=== PATIENT | male | born 1950 | race Caucasian/White ===

== ENCOUNTER 2021-04-23 19:58 | Emergency (ER) | payer MEDICARE, OTHER ==
[~2021-04-23] VITALS: Ht 180.3 cm; Wt 122.5 kg
[2021-04-23] MEDS ORDERED: GELATIN SPONGE,ABSORBABLE 1 SPONGE SPONGE TP ONE (20:09)
[2021-04-23] MEDS ORDERED: LIDOCAINE HCL/MPF 1% 30 ML VIAL IJ ONE (20:10)
--- NOTE | 2021-04-23 20:10 | NUR ---
BIBRA FR OM HOME FR C/O BLEEDING FROM RFA AV SHUNT. PT HAD HD TODAY AT 0700. PT A, OX4. WAS PLACED IN BED 4 ER. ON MONITOR, VSS. WILL CONT TO MONITOR
--- NOTE | 2021-04-23 20:17 | NUR ---
DR ALVAREZ AT BED SIDE FOR SUTURING
[2021-04-23] MEDS ORDERED: LIDOCAINE HCL/PF 1% 30 ML VIAL TP ONE (20:30)
[2021-04-23 20:35] LABS: BASOPHILS # (AUTO) 0.1 K/uL (0.0-0.2); BASOPHILS % (AUTO) 1.4 % (0.0-2.0); EOSINOPHILS % (AUTO) 2.9 % (0.0-6.0); HEMATOCRIT 36 % (39-51); HEMOGLOBIN 12.1 g/dL (13.5-17.5); LYMPHOCYTES # (AUTO) 0.9 K/uL (0.8-4.8); LYMPHOCYTES % (AUTO) 15.6 % (20.0-44.0); MEAN CORPUSCULAR HGB CONC 33 g/dl (31.0-36.0); MEAN CORPUSCULAR VOLUME 93 fL (80-96); MONOCYTES # (AUTO) 0.8 K/uL (0.1-1.30); MONOCYTES % (AUTO) 13.8 % (2.0-12.0); NEUTROPHILS % (AUTO) 66.3 % (43.0-81.0); PLATELET COUNT (AUTO) 97 K/uL (150-450); RED BLOOD CELL COUNT(AUTO) 3.93 MIL/uL (4.5-6.0)
[2021-04-23 20:44] LABS: CALCIUM, SERUM 9.8 mg/dL (8.5-10.1); CARBON DIOXIDE 30 mmol/L (21-32); CHLORIDE 101 mmol/L (98-107); CREATININE 4.6 mg/dL (0.6-1.3); GLUCOSE 171 mg/dL (74-106); POTASSIUM 4.2 mmol/L (3.5-5.1); SODIUM SERUM 139 mmol/L (136-145); UREA NITROGEN, BLOOD 42 mg/dL (7-18)
[2021-04-23 21:37] VITALS: BP 159/98
--- NOTE | 2021-04-23 21:38 | NUR ---
Patient discharged to home in stable condition. Written and verbal after care instructions given. Patient verbalizes understanding of instruction.
[2021-04-23 22:01] LABS: BAND % (MANUAL) 2 % (0.0-5.0); EOSINOPHILS % (MANUAL) 1 % (0-4); LYMPHOCYTES % (MANUAL) 15 % (16-48); MONOCYTES % (MANUAL) 10 % (0-11.0); NEUTROPHILS % (MANUAL) 72 (42-76)
== END 2021-04-23 21:21 | disposition home or self-care (01) ==
LOC: ER 20:03
DX: T82.511A Breakdown (mechanical) of surgically created arteriovenous shunt, initial encounter (principal); I13.2 Hypertensive heart and chronic kidney disease with heart failure and with stage 5 chronic kidney disease, or end stage renal disease; N18.6 End stage renal disease; I50.9 Heart failure, unspecified; Z99.2 Dependence on renal dialysis
CPT/HCPCS: 36415; 80048; 85007; 85025; 99283; A6403; J3490 ×2

== ENCOUNTER 2022-02-22 19:37 | Inpatient (IN) | payer OTHER ==
[~2022-02-22] VITALS: Ht 172.7 cm; Wt 129.3 kg
[~2022-02-22 19:37] MED LIST: PIPERACILLIN /TAZOBACTAM 2.25 G in IV D5W 50 ML IV ONE
--- NOTE | 2022-02-22 19:50 | NUR ---
BIBRA88 FROM HOME C/O LOW BP 80/50 AT SCENE. BP AT TRIAGE 97/73 HX OF DIALYSIS MWF DID FULL TX TODAY. STATES "HIS LEGS ARE FEELING WEAK". PATIENT ALERT AND ORIENTED X3. NORMALLY AMBULATORY BUT BROUGHT IN BY NIKIA TODAY. IN BED 07 AWAITING MD WINTERS.
--- NOTE | 2022-02-22 20:13 | NUR ---
COVID SWAB DONE AND SENT TO LAB
--- NOTE | 2022-02-22 20:13 | NUR ---
BLOOD COLLECTED AND SENT TO LAB
[2022-02-22] MEDS ORDERED: IV NS 0.9% 1,000 ML BAG IV ONE (20:30)
[2022-02-22 20:35] LABS: BASOPHILS # (AUTO) 0.1 K/uL (0.0-0.2); BASOPHILS % (AUTO) 1.3 % (0.0-2.0); HEMATOCRIT 35 % (39-51); HEMOGLOBIN 11.4 g/dL (13.5-17.5); LYMPHOCYTES # (AUTO) 0.7 K/uL (0.8-4.8); LYMPHOCYTES % (AUTO) 9.1 % (20.0-44.0); MEAN CORPUSCULAR HGB CONC 33 g/dl (31.0-36.0); MEAN CORPUSCULAR VOLUME 91 fL (80-96); MONOCYTES # (AUTO) 1.2 K/uL (0.1-1.30); NEUTROPHILS # (AUTO) 5.9 K/uL (1.8-8.9); NEUTROPHILS % (AUTO) 73.6 % (43.0-81.0); PLATELET COUNT (AUTO) 141 K/uL (150-450); RED BLOOD CELL COUNT(AUTO) 3.83 MIL/uL (4.5-6.0)
[2022-02-22 20:54] LABS: CARBON DIOXIDE 31 mmol/L (21-32); CHLORIDE 96 mmol/L (98-107); CREATININE 5.4 mg/dL (0.6-1.3); GLUCOSE 168 mg/dL (74-106); SODIUM SERUM 137 mmol/L (136-145); UREA NITROGEN, BLOOD 40 mg/dL (7-18)
[2022-02-22] MEDS ORDERED: ASPIRIN 81 MG TAB.CHEW PO ONE (21:00)
[2022-02-22] MEDS ORDERED: ASPIRIN 81 MG TAB.CHEW ONE (21:01)
--- NOTE | 2022-02-22 21:02 | NUR ---
[facility] CALL[facility] FOR ADMISSION. SPOKE WITH ALYSON OSORIOT
[2022-02-22 21:05] LABS: ALANINE AMINOTRANSFERASE 11 U/L (12-78); ALBUMIN 3.1 g/dL (3.4-5.0); ALKALINE PHOSPHATASE 137 U/L (46-116); ASPARTATE AMINOTRANSFERASE 17 U/L (15-37); BILIRUBIN,DIRECT 0.3 mg/dL (0.0-0.2); BILIRUBIN,TOTAL 0.6 mg/dL (0.2-1.0); TOTAL PROTEIN, SERUM 7.8 g/dL (6.4-8.2)
--- NOTE | 2022-02-22 21:11 | NUR ---
DR. DRAPER ON THE PHONE WITH THE RAMON
--- NOTE | 2022-02-22 21:13 | NUR ---
PT IS AUTHORIZED TO STAY, APPROVED BY DR. CARRILLO, [facility]
--- NOTE | 2022-02-22 21:29 | NUR ---
DR. BAEZ ON THE PHONE WITH DR. NAVARRO
--- NOTE | 2022-02-22 21:40 | NUR ---
[facility] SWAB COLLECTED AND SENT TO LAB. PATIENT'S BELONGINGS LIST DONE.
[2022-02-22] MEDS ORDERED: CEFTRIAXONE 1GM BAG (ER ONLY) 50 ML IV ONE ×2 (21:55→22:00)
[2022-02-22] MEDS ORDERED: AZITHROMYCIN 500 MG VIAL ONE (21:55)
[2022-02-22] MEDS ORDERED: MAG HYDROX/AL HYDROX/SIMETH 30 ML UDC PO PRN (22:00)
[2022-02-22] MEDS ORDERED: ZOLPIDEM TARTRATE 5 MG TABLET PO PRN (22:00)
[2022-02-22] MEDS ORDERED: PHENYLEPHRINE 50 MG in IV NS 0.9% 245 ML IV PRN (22:00)
[2022-02-22] MEDS ORDERED: Z GUARD REMEDY 4 OZ OINT TP PRN (22:00)
[2022-02-22] MEDS ORDERED: ACETAMINOPHEN 325 MG TABLET PO PRN (22:00)
[2022-02-22] MEDS ORDERED: AZITHROMYCIN 500 MG in IV D5W 250 ML IV ONE (22:00)
[2022-02-22] MEDS ORDERED: ONDANSETRON HCL/PF 4 MG/2 ML VIAL IVP PRN (22:00)
[2022-02-22] MEDS ORDERED: MAGNESIUM HYDROXIDE 30 ML UDC PO PRN (22:00)
--- NOTE | 2022-02-22 22:35 | NUR ---
SECOND IV LINE ESTBALISHED 18G LAC PER ICU PROTOCOLS
[2022-02-22] MEDS ORDERED: *INSULIN REGULAR(HUMULIN R)HUM 100 UNIT/ML VIAL SQ PRN (23:00)
[2022-02-22] MEDS ORDERED: INSULIN REGULAR, HUMAN 100 UNIT/ML 3 ML VIAL SQ PRN (23:00)
[2022-02-22] MEDS ORDERED: PIPERACILLIN /TAZOBACTAM 2.25 G in IV D5W 50 ML IV ONE (23:00)
[2022-02-22] MEDS ORDERED: DEXTROSE 50%-WATER 50 ML DISP.SYRIN IV PRN (23:00)
--- NOTE | 2022-02-22 23:09 | NUR ---
REPORT GIVEN TO FAROOQ
[2022-02-22] MEDS ORDERED: AMIO200T5 PO (23:19)
[2022-02-22] MEDS ORDERED: HYDR-4209 PO (23:19)
[2022-02-22] MEDS ORDERED: TIMO5DRO35 RIGHTEYE (23:19)
[2022-02-22] MEDS ORDERED: FURO40TA5 PO (23:19)
[2022-02-22] MEDS ORDERED: DOCU-141 PO (23:19)
[2022-02-22] MEDS ORDERED: MIDO10TA PO (23:19)
[2022-02-22] MEDS ORDERED: TIMO5DRO35 EACHEYE (23:19)
[2022-02-22] MEDS ORDERED: CHOL200013 (23:19)
[2022-02-22] MEDS ORDERED: CLOP100P MC (23:19)
[2022-02-22] MEDS ORDERED: VANCOMYCIN 1 GM in IV D5W 250ml IV ONE (23:30)
--- NOTE | 2022-02-22 23:40 | NUR ---
RN NOTES RECEIVED CARE OF PATIENT FROM ER NURSE, PATIENT A/O X4, ABLE TO MAKE NEEDS KNOWN. PATIENT IN NO PAIN OR DISCOMFORT AT THIS TIME. ON OXYGEN THERAPY VIA SIMPLE MASK AT 10 L/MIN, BREATHING IS LABORED, SYMMETRICAL CHEST RISE AND FALL NOTED, O2 SAT 97%. PATIENT ON TELE MONITOR, SHOWING CONTROLLED AFIB, HR 98, NO DISTRESS NOTED. ALL PATIENT'S IV ACCESS ARE PATENT AND FLUSHING WELL. SAFETY MEASURES IMPLEMENTED PER HOSPITAL PROTOCOLS. WILL CONTINUE TO MONITOR PATIENT.
--- NOTE | 2022-02-22 23:43 | NUR ---
PT TRANSPORTED TO ROOM 257 ON CRUST SORTER PER ACLS PROTOCOL. V/S STABLE AT TIME OF TRANSFER.
[2022-02-22] MEDS ORDERED: PIPERACILLIN /TAZOBACTAM 2.25 G VIAL IV ONE (23:44)
[2022-02-22 23:46] VITALS: BP 91/55
[2022-02-22] MEDS: IV NS 0.9% 250 ML IV PRN (23:46)
[2022-02-23] VITALS (79 sets, daily range): BP systolic 59–145; BP diastolic 32–103
[2022-02-23] MEDS ORDERED: HYDROCODONE/APAP 5/325MG TABLET PO PRN
[2022-02-23] MEDS ORDERED: MIDODRINE HCL (5MG) 5 MG TABLET PO SCH
[2022-02-23] MEDS ORDERED: PIPERACILLIN /TAZOBACTAM 3.375 G in IV D5W 50 ML IV SCH ×2
[2022-02-23] MEDS ORDERED: VANCOMYCIN 1 GM VIAL ONE (00:32)
--- NOTE | 2022-02-23 01:30 | NUR ---
RN NOTES CRITICAL LAB VALUE REPORTED, TROPONIN LEVELS OF 2640. PATIENT READING CONTROLLED AFIB ON TELE MONITOR. PATIENT IN NO ACUTE DISTRESS, NO PAIN EXPRESSED. DOCTOR PROCESS SUPERVISOR, PAUL EARL, NOTIFIED, ORDER TO START HEPARIN DRIP FOR ACS. WILL CARRY OUT ORDERS ACCORDING TO PROTOCOLS AND WILL CONTINUE TO MONITOR PATIENT.
[2022-02-23] MEDS ORDERED: HEPARIN SODIUM, PORCINE 5000 UNITS/1 ML VIAL IV ONE (02:00)
[2022-02-23] MEDS: HEPARIN INFUSION/D5W 500 ML IV PRN ×2 (02:22→22:49)
[2022-02-23 04:12] LABS: BASOPHILS # (AUTO) 0.1 K/uL (0.0-0.2); BASOPHILS % (AUTO) 0.6 % (0.0-2.0); HEMATOCRIT 34 % (39-51); HEMOGLOBIN 11.2 g/dL (13.5-17.5); LYMPHOCYTES # (AUTO) 0.9 K/uL (0.8-4.8); LYMPHOCYTES % (AUTO) 10.5 % (20.0-44.0); MEAN CORPUSCULAR HGB CONC 33 g/dl (31.0-36.0); MEAN CORPUSCULAR VOLUME 92 fL (80-96); MONOCYTES # (AUTO) 1.5 K/uL (0.1-1.30); NEUTROPHILS # (AUTO) 6.1 K/uL (1.8-8.9); NEUTROPHILS % (AUTO) 69.9 % (43.0-81.0); PLATELET COUNT (AUTO) 131 K/uL (150-450); RED BLOOD CELL COUNT(AUTO) 3.72 MIL/uL (4.5-6.0); WHITE BLOOD COUNT (AUTO) 8.7 K/uL (4.3-11.0)
[2022-02-23 04:36] LABS: CARBON DIOXIDE 31 mmol/L (21-32); CHLORIDE 98 mmol/L (98-107); CREATININE 5.7 mg/dL (0.6-1.3); GLUCOSE 127 mg/dL (74-106); MAGNESIUM 2.3 mg/dL (1.8-2.4); POTASSIUM 5.1 mmol/L (3.5-5.1); SODIUM SERUM 137 mmol/L (136-145); UREA NITROGEN, BLOOD 41 mg/dL (7-18)
[2022-02-23 04:53] LABS: PHOSPHORUS 8.6 mg/dL (2.5-4.9)
--- NOTE | 2022-02-23 05:12 | NUR ---
UNABLE TAKE XRAY KUB DUE TO PATIENTS WEIGHT EXCEEDS IMAGING DETECTOR PLATE FROM TAKING XRAY EVEN WITH GRID. EXAM NEEDS TO BE MODIFIED TO CT ABDOMEN PELVIS PER CHANGE BY ORDERING DOCTOR, END OF REPORT....
[2022-02-23] MEDS: CALCIUM ACETATE 667 MG CAP/TAB PO SCH ×4 (05:18→17:52)
--- NOTE | 2022-02-23 06:40 | NUR ---
RN NOTES WILL ENDORSE CARE OF PATIENT TO AM NURSE WHILE PATIENT SLEEPING, WAKES UP TO NAME. NO DISCOMFORT OR PAIN AT THIS TIME. PATIENT ON OXYGEN THERAPY VIA SIMPLE MASK, TITRATED DOWN TO 5L/MIN, O2 SAT 95%, BREATHING EVEN AND UNLABORED. PATIENT ON TELE MONITOR SHOWING CONTROLLED AFIB WITH HR OF 98, NO DISTRESS NOTED ON PATIENT. ALL PATIENT NEEDS MET THROUGHOUT SHIFT. ALL DUE MEDS GIVEN. SAFETY MEASURES KEPT IN PLACE. WILL ENDORSE TO AM NURSE FOR CONTINUITY OF CARE.
--- NOTE | 2022-02-23 07:36 | NUR ---
WOUND CARE CONSULT: PT PRESENTS WITH STAGE 3 PRESSURE ULCER TO SACRUM, LEFT ELBOW DRY SCAB, DRY LESION TO TOP OF SCALP AND BILATERAL LOWER LEG REDNESS WITH EDEMA AND SOME WEEPING/CRUSTED LESIONS, ALL PRESENT ON ADMISION. DR JOSE FERRER CALLED FOR SURGICAL CONSULT REQUEST AND DR IKSER CALLED FOR DPM CONSULT REQUEST. RECOMMENDATIONS MADE FOR SKIN PROTECTION AND WOUND CARE. DISCUSSED WITH NURSING STAFF. PT DEMONSTRATES ABILITY TO ASSIST WITH TURNING AND REPOSITIONING. MD IN AGREEMENT WITH PLAN OF CARE. Addendum: 02/23/22 at 0738 by ELVIN HERNANDEZ WNDNU Amended: Links added.
[2022-02-23] MEDS ORDERED: ZOSYN IVPB 2.25 G in IV D5W 50ml IV ONE (08:00)
[2022-02-23] MEDS: CLOPIDOGREL BISULFATE 75 MG TABLET PO SCH (08:19)
[2022-02-23] MEDS: ASPIRIN EC 81 MG TABLET.DR PO SCH (08:19)
[2022-02-23] MEDS: DOCUSATE SODIUM 100 MG CAPSULE PO SCH (08:20)
[2022-02-23] MEDS: AMIODARONE HCL 200 MG TABLET PO SCH (08:20)
[2022-02-23] MEDS: BLOOD SUGAR DIAGNOSTIC 1 EACH STRIP VI SCH ×3 (08:33→17:51)
[2022-02-23] MEDS: TIMOLOL 0.5% SOLN OPHTH 5 ML BOTTLE EACHEYE SCH ×2 (08:34→17:09)
[2022-02-23] MEDS: HYDROGEL DRESSING 90 GM TUBE TP PRN (08:55)
[2022-02-23] MEDS: HYDROGEL DRESSING 90 GM TUBE TP SCH (08:58)
--- NOTE | 2022-02-23 09:25 | NUR ---
REPORTED TO DR. HUTCHISON R/T BACK PAIN NOT RELIEVED BY MD SHADY WITH NEW ORDER OF MORPHINE NOTED.
[2022-02-23] MEDS ORDERED: MORPHINE SULFATE INJ 2 MG/ML DISP.SYRIN IV PRN (09:30)
[2022-02-23] MEDS ORDERED: ZOSYN IVPB 2.25 G in IV D5W 50ml IV SCH (13:00)
[2022-02-23] MEDS: ALBUMIN 25% 25 GM in PREMIX 1 EA IV PRN (14:47)
[2022-02-23] MEDS: NOREPINEPHRINE 8 MG in IV NS 0.9% 242 ML IV PRN ×2 (15:46→20:14)
[2022-02-23] MEDS: ZOSYN IVPB 2.25 G in IV D5W 50ml IV SCH ×2 (17:01→23:52)
[2022-02-23] MEDS: AMMONIUM LACTATE 227 GM BOTTLE TP SCH (17:09)
[2022-02-23] MEDS: CLOTRIMAZOLE 1% 15 GM TUBE TP SCH (17:10)
--- NOTE | 2022-02-23 18:50 | NUR ---
CHARGE NURSE RN AT BEDSIDE AND PT. NOTED WITH AGONAL BREATHING AND A SUDDEN RESPIRATORY ARREST. CODE BLUE ACTIVATED. PLEASE SEE CODE EMERGENCY FORM/SHEET FOR DETAILS.
--- NOTE | 2022-02-23 19:10 | NUR ---
ENDORSED TO LEE FOR CONTINUITY OF CARE.
[2022-02-23] MEDS: PROPOFOL 100 ML IV PRN (19:20)
--- NOTE | 2022-02-23 20:30 | NUR ---
ICU/LOSS PREVENTION REPRESENTATIVE PT WAS AGITATED, NOTIFED THE CHARGE NURSE WHO THEN INCREASED THE SEDATION ON THIS PT. WILL CONTINUE TO MONITOR THIS PT.
[2022-02-23] MEDS ORDERED: PROPOFOL 200 MG/20 ML VIAL IV ONE (20:35)
[2022-02-23] MEDS ORDERED: EPINEPHRINE (1:10,000) SYRINGE 1 MG/10 ML DISP.SYRIN IVP ONE (20:35)
[2022-02-23] MEDS ORDERED: ETOMIDATE 2 MG/ML VIAL IV ONE (20:35)
--- NOTE | 2022-02-23 20:50 | NUR ---
ICU/MONUMENTAL STONEMASON LEVO STARTED BY GRILL ATTENDANT NURSE FOR LOW BP 59/39 HEART RATE 93. WILL CONTINUE TO MONITOR THIS PT AND HIS BLOOD PRESSURE.
--- NOTE | 2022-02-23 21:39 | NUR ---
ICU/POWER HAMMER OPERATOR STABLE BP LEVO WAS DECREASED DOWN PER PROTOCAL BY SUPERVISOR FILLING AND PACKING NURSE. WILL CONTINUE TO MONITOR THIS PT'S BP.
[2022-02-23 21:53] LABS: ABG BASE EXCESS -5.5 mmol/L; ABG PCO2 46.6 mmHg (35.0-45.0); ABG PH 7.278 (7.350-7.450); ABG PO2 169.3 mmHg (75.0-100.0); COHb 0.9 % (0.5-1.5); MetHb 0.3 % (0.0-1.5); O2Hb 97.7 % (94.0-97.0); PEEP,BG 5 cm H2O; SITE, ABG Right Brachial; VENT MODE, BG AC 22 500 100% +5; VT, ABG 500 mL
--- NOTE | 2022-02-23 23:30 | NUR ---
ICU/CUSTOMER LEADER TITRATION OF LEVO WAS DONE SEE IV SPREAD SHEET FOR THE TITRATIONS AND BLOOD PRESSURE ASSOCIATED WITH THESE. WILL CONTINUE TO MONITOR THIS PT AND HIS BLOOD PRESSURE.
[2022-02-24] VITALS (96 sets, daily range): BP systolic 85–130; BP diastolic 40–82
[2022-02-24] MEDS ORDERED: DEXTROSE 50%-WATER 50 ML DISP.SYRIN IV PRN
[2022-02-24] MEDS ORDERED: *INSULIN REGULAR(HUMULIN R)HUM 100 UNIT/ML VIAL SQ PRN
[2022-02-24] MEDS: BLOOD SUGAR DIAGNOSTIC 1 EACH STRIP VI SCH ×4 (00:01→18:28)
[2022-02-24] MEDS: INSULIN REGULAR, HUMAN 100 UNIT/ML 3 ML VIAL SQ PRN ×2 (00:06→18:40)
[2022-02-24] MEDS ORDERED: VANCOMYCIN 500 MG VIAL ONE (00:21)
--- NOTE | 2022-02-24 00:45 | NUR ---
ICU/KNOWLEDGE ARCHITECT VANCO WASN'T GIVEN POST HD DUE TO THE FACT PT WAS CODE BLUE @1945. PT GETS VACO POST HD. CALLED THE BOARD MACHINE SET UP OPERATOR PHARMACY WHO SAID TO DO A RANDOM VANCO LEVEL AND DON'T DO THE AM 0600. WILL CALL PHARMACY ABOUT THIS.
--- NOTE | 2022-02-24 01:22 | NUR ---
ICU/SUPERVISOR INSTRUMENT MAINTENANCE TROPONIN IS POSITIVE AT 2604, PT IS CURRENTLY ON HEPARIN. NOTIFED THE RN PRIVATE DUTY ABOUT THIS. NO NEW ORDERS RECIEVED. CHARGE NURSE AWARE.
[2022-02-24 01:34] LABS: VANCOMYCIN,RANDOM 6 ug/ml (18-26)
[2022-02-24] MEDS: VANCOMYCIN POST DIALYSIS 500MG IV PRN ×2 (01:57)
[2022-02-24] MEDS: PROPOFOL 100 ML IV PRN ×7 (01:57→23:18)
--- NOTE | 2022-02-24 02:05 | NUR ---
ICU/BALLAST REGULATOR OPERATOR RANDOM VANCO LEVEL WAS DONE WHICH WAS A 6. VANCO WAS NOW HUNG UP, PT WAS S/P CODE BLUE AT CHANGE OF SHIFT, SO VANCO WAS JUST HUNG UP.
--- NOTE | 2022-02-24 03:13 | NUR ---
ICU/COVERING AND LINING SUPERVISOR SEDATION OF DIPRIVAN WAS TITRATED UP, DUE TO PT'S MILD AGITATION. SEE IV SPREAD SHEET FOR TITRATIONS. WILL CONTINUE TO MONITOR THIS PT.
[2022-02-24] MEDS ORDERED: NOREPINEPHRINE 8MG/250ML RTU 250 ML IV ONE (05:03)
[2022-02-24] MEDS: NOREPINEPHRINE 8 MG in IV NS 0.9% 242 ML IV PRN (05:11)
[2022-02-24] MEDS: IV NS 0.9% 250 ML IV PRN (05:12)
--- NOTE | 2022-02-24 07:56 | NUR ---
RN OPENING NOTE PATIENT RECEIVED IN BED, SEDATED. PATIENT ON MECHANICAL VENTILATOR WITH FIO2 70%. BILATERAL SOFT WRIST RESTRAINS ON, SKIN WARM AND INTACT. NG TUBE IN PLACE. LEFT ARM MIDLINE, LEFT AC 18G, LEFT WRIST 20G IV IN PLACE, LEVO RUNNING AT 0.02MCG, HEPARIN RUNNING AT 1400 UNITS/HR, AND PROPOFOL RUNNING AT 35 MCG. BP STABLE AT 105/76. BED LOCKED AND IN LOWEST POSITION, CALL LIGHT WITHIN REACH, 3 SIDE RAILS UP.
[2022-02-24 08:02] LABS: BASOPHILS % (AUTO) 0.4 % (0.0-2.0); EOSINOPHILS % (AUTO) 1.6 % (0.0-6.0); HEMATOCRIT 33 % (39-51); HEMOGLOBIN 10.9 g/dL (13.5-17.5); MEAN CORPUSCULAR HGB CONC 33 g/dl (31.0-36.0); MEAN CORPUSCULAR VOLUME 91 fL (80-96); MONOCYTES # (AUTO) 1.6 K/uL (0.1-1.30); MONOCYTES % (AUTO) 17.9 % (2.0-12.0); NEUTROPHILS % (AUTO) 69.1 % (43.0-81.0); PLATELET COUNT (AUTO) 149 K/uL (150-450); RED BLOOD CELL COUNT(AUTO) 3.65 MIL/uL (4.5-6.0); WHITE BLOOD COUNT (AUTO) 8.7 K/uL (4.3-11.0)
[2022-02-24 08:28] LABS: ABG BASE EXCESS -2.5 mmol/L; ABG PCO2 29.9 mmHg (35.0-45.0); ABG PH 7.453 (7.350-7.450); ABG PO2 122.7 mmHg (75.0-100.0); COHb 0.6 % (0.5-1.5); MetHb 0.3 % (0.0-1.5); O2Hb 97.5 % (94.0-97.0); SITE, ABG Right Radial; VENT MODE, BG AC24 550 70% +5
[2022-02-24] MEDS: ASPIRIN EC 81 MG TABLET.DR PO SCH (08:33)
[2022-02-24] MEDS: CALCIUM ACETATE 667 MG CAP/TAB PO SCH ×3 (08:33→18:28)
[2022-02-24] MEDS: DOCUSATE SODIUM 100 MG CAPSULE PO SCH (08:33)
[2022-02-24] MEDS: AMIODARONE HCL 200 MG TABLET PO SCH (08:33)
[2022-02-24] MEDS: ZOSYN IVPB 2.25 G in IV D5W 50ml IV SCH ×2 (08:34→16:14)
[2022-02-24] MEDS: TIMOLOL 0.5% SOLN OPHTH 5 ML BOTTLE EACHEYE SCH ×2 (08:34→16:15)
[2022-02-24] MEDS: CLOTRIMAZOLE 1% 15 GM TUBE TP SCH ×2 (08:35→16:15)
[2022-02-24] MEDS: CLOPIDOGREL BISULFATE 75 MG TABLET PO SCH (08:35)
[2022-02-24] MEDS: HYDROGEL DRESSING 90 GM TUBE TP SCH (08:35)
[2022-02-24] MEDS: AMMONIUM LACTATE 227 GM BOTTLE TP SCH ×2 (08:36→16:15)
[2022-02-24 08:40] LABS: ALANINE AMINOTRANSFERASE 7 U/L (12-78); ALBUMIN 2.7 g/dL (3.4-5.0); ALKALINE PHOSPHATASE 95 U/L (46-116); ASPARTATE AMINOTRANSFERASE 21 U/L (15-37); BILIRUBIN,TOTAL 0.8 mg/dL (0.2-1.0); CALCIUM, SERUM 9.3 mg/dL (8.5-10.1); CARBON DIOXIDE 24 mmol/L (21-32); CHLORIDE 100 mmol/L (98-107); GLUCOSE 142 mg/dL (74-106); POTASSIUM 4.7 mmol/L (3.5-5.1); SODIUM SERUM 137 mmol/L (136-145); TOTAL PROTEIN, SERUM 6.9 g/dL (6.4-8.2); UREA NITROGEN, BLOOD 41 mg/dL (7-18)
[2022-02-24 10:19] LABS: EOSINOPHILS % (MANUAL) 2 % (0-4); LYMPHOCYTES % (MANUAL) 12 % (16-48); MONOCYTES % (MANUAL) 16 % (0-11.0); NEUTROPHILS % (MANUAL) 70 (42-76)
--- NOTE | 2022-02-24 11:20 | NUR ---
RT PER DR FRANKLIN ORDER VT LOWERED TO 500. Addendum: 02/24/22 at 1521 by NITHYA MARTINEZ RT Amended: Links added.
--- NOTE | 2022-02-24 12:23 | NUR ---
SS received consult for sacral pressure sore and lives with elderly mother. Pt. is intubated and is not interviewable. SW will follow-up once pt. is extubated.
[2022-02-24] MEDS ORDERED: VANCOMYCIN 1.25 GM in IV D5W 250 ML IV ONE (13:00)
[2022-02-24] MEDS: HEPARIN INFUSION/D5W 500 ML IV PRN (17:27)
--- NOTE | 2022-02-24 17:45 | NUR ---
MARY JANE NOTE: TRANSFER REPORT RECEIVED FROM MARY JANE GOMEZ. PT IS STABLE AT THIS TIME AND WILL CONTINUE TO MONITOR THIS SHIFT. Addendum: 02/24/22 at 1807 by ORLIN ONEILL RN MARY JANE NOTE PT WAS NOT TRANSFERRED FROM ICU. REPORT WAS JUST RECEIVED FROM MARY JANE GOMEZ. PT REMAINS IN ROOM 257.
--- NOTE | 2022-02-24 18:12 | NUR ---
RN NOTE REPORT GIVEN TO ORLIN HINTON FOR ANGELA.
--- NOTE | 2022-02-24 19:28 | NUR ---
RN NOTE: ELISEO CONSENT THIS NURSE CONTACTED PTS MOTHERMARY VIA TELEPHONE AND CONDUCTED 2 RN VERIFICATION CONSENT FOR ELISEO.
--- NOTE | 2022-02-24 19:33 | NUR ---
RN CLOSING NOTE PT IS IN BED SEDATED AT THIS TIME. PT IS ON MECHANICAL VENT WITH ALL PRESCRIBED SETTINGS TOLERATING WELL WITH NO SIGNS OF DISTRESS OR LABORED BREATHING. PT SEDATED WITH DIPROVAN @40MCG/HR. PT IS ALSO ON LEVO @ 0.04MCG/HR AND ALSO AND INFUSING WITH HEPARIN @ 1600U/HOUR. PT HAS R NARE NG TUBE CLAMPED AT THIS TIME. IV ACCESS L AC; L WRIST; R WRIST HD. NO HD DONE TODAY. BED IS LOCKED IN LOWEST POSITION AND ALL HOSPITAL SAFETY PROTOCOLS ARE IN PLACE WILL ENDORSE TO FELT FINISHING SUPERVISOR NURSE FOR ANGELA.
--- NOTE | 2022-02-24 19:50 | NUR ---
ICU/RAIL LOADER DAY RN WAS ABLE TO OBTAIN CONSENT FOR TEA TOMORROW, 02/25/[address] DIAZ. NAHID HINTON WAS A WITNESS TO THE CONSENT.
--- NOTE | 2022-02-24 20:05 | NUR ---
ICU/STRAINER CLEANER CALLED NELIA FROM PHARMACY ABOUT THE PTT WHICH WAS 45.5 TO ROUND UP OR NOT. NELIA SAID TO ROUND UP TO 46. WHICH MEANS LEAVE HEPARIN DRIP IT IS AND DO PTT. CHARGE NURSE MADE AWARE.
[2022-02-24] MEDS ORDERED: VANCOMYCIN 1 GM in IV D5W 250 ML IV ONE (22:00)
--- NOTE | 2022-02-24 23:10 | NUR ---
ICU/INSPECTOR WIRE ROPE HD NURSE TOOK OFF 2 LITERS FROM DIALYSIS. CHARGE NURSE MADE AWARE.
[2022-02-25] VITALS (114 sets, daily range): BP systolic 86–129; BP diastolic 46–88
[2022-02-25] MEDS: BLOOD SUGAR DIAGNOSTIC 1 EACH STRIP VI SCH ×5 (00:02→23:32)
[2022-02-25] MEDS: ZOSYN IVPB 2.25 G in IV D5W 50ml IV SCH ×4 (00:04→23:18)
[2022-02-25] MEDS: PROPOFOL 100 ML IV PRN ×8 (01:57→22:50)
[2022-02-25 04:23] LABS: BASOPHILS # (AUTO) 0.1 K/uL (0.0-0.2); BASOPHILS % (AUTO) 1.3 % (0.0-2.0); EOSINOPHILS % (AUTO) 3.7 % (0.0-6.0); HEMATOCRIT 33 % (39-51); LYMPHOCYTES # (AUTO) 0.9 K/uL (0.8-4.8); LYMPHOCYTES % (AUTO) 12.9 % (20.0-44.0); MEAN CORPUSCULAR HGB CONC 34 g/dl (31.0-36.0); MEAN CORPUSCULAR VOLUME 90 fL (80-96); MONOCYTES # (AUTO) 1.1 K/uL (0.1-1.30); NEUTROPHILS # (AUTO) 4.9 K/uL (1.8-8.9); NEUTROPHILS % (AUTO) 67.1 % (43.0-81.0); PLATELET COUNT (AUTO) 137 K/uL (150-450); RED BLOOD CELL COUNT(AUTO) 3.64 MIL/uL (4.5-6.0); WHITE BLOOD COUNT (AUTO) 7.3 K/uL (4.3-11.0)
[2022-02-25 04:37] LABS: ALANINE AMINOTRANSFERASE 7 U/L (12-78); ALBUMIN 2.5 g/dL (3.4-5.0); ALKALINE PHOSPHATASE 96 U/L (46-116); ASPARTATE AMINOTRANSFERASE 21 U/L (15-37); BILIRUBIN,TOTAL 0.7 mg/dL (0.2-1.0); CALCIUM, SERUM 9.5 mg/dL (8.5-10.1); CARBON DIOXIDE 24 mmol/L (21-32); CHLORIDE 99 mmol/L (98-107); CREATININE 5.5 mg/dL (0.6-1.3); GLUCOSE 146 mg/dL (74-106); SODIUM SERUM 137 mmol/L (136-145); TOTAL PROTEIN, SERUM 6.7 g/dL (6.4-8.2); UREA NITROGEN, BLOOD 34 mg/dL (7-18)
[2022-02-25] MEDS: IV NS 0.9% 250 ML IV PRN ×2 (05:14→20:44)
--- NOTE | 2022-02-25 05:34 | NUR ---
ICU/MEAT PROCESSOR PER [facility] PROTOCAL INCREASED THE RATE 200UNITS TO A NEW TOTAL OF 1800UNITS FROM 1600UNITS, PTT-43.7
[2022-02-25] MEDS: NOREPINEPHRINE 8 MG in IV NS 0.9% 242 ML IV PRN (05:37)
[2022-02-25 05:55] LABS: BAND % (MANUAL) 1 % (0.0-5.0); EOSINOPHILS % (MANUAL) 6 % (0-4); LYMPHOCYTES % (MANUAL) 15 % (16-48); MONOCYTES % (MANUAL) 11 % (0-11.0); NEUTROPHILS % (MANUAL) 67 (42-76)
[2022-02-25] MEDS: INSULIN REGULAR, HUMAN 100 UNIT/ML 3 ML VIAL SQ PRN (05:56)
--- NOTE | 2022-02-25 07:45 | NUR ---
ICU/RN PT IS INTUBATED ON THE VENT AC MODE FIO2-45%.SAT O2-97-98%.SEDATED WITH DIPRIVAN .ON LEVOPHED AND HEPARIN DRIPS.AFEBRILE.NO PAIN REPORTED AT THIS TIME.LEFT CHEST PACEMAKER.RIGHT ARM HD FISTULA.PT HAS ESRD. ABDOMEN DISTENDED HAS ASCITES .NG TUBE CLAMPED PT IS NPO.SCHEDULE ELISEO TODAY.LEFT UPPER ARM MIDLINE.ANURIC.PT IS OBESE GENERALIZED EDEMA PRESENT.LABS REVIEW.MD AWARE.CONTINUE MONITORING.
[2022-02-25] MEDS: AMIODARONE HCL 200 MG TABLET PO SCH (08:36)
[2022-02-25] MEDS: HEPARIN INFUSION/D5W 500 ML IV PRN ×2 (08:36→22:13)
[2022-02-25] MEDS: CALCIUM ACETATE 667 MG CAP/TAB PO SCH ×3 (08:36→17:28)
[2022-02-25] MEDS: CLOPIDOGREL BISULFATE 75 MG TABLET PO SCH (08:36)
[2022-02-25] MEDS: ASPIRIN EC 81 MG TABLET.DR PO SCH (08:36)
[2022-02-25] MEDS: DOCUSATE SODIUM 100 MG CAPSULE PO SCH (08:37)
[2022-02-25] MEDS: HYDROGEL DRESSING 90 GM TUBE TP SCH (08:38)
[2022-02-25] MEDS: CLOTRIMAZOLE 1% 15 GM TUBE TP SCH ×2 (08:38→17:28)
[2022-02-25] MEDS: TIMOLOL 0.5% SOLN OPHTH 5 ML BOTTLE EACHEYE SCH ×2 (08:38→17:28)
[2022-02-25] MEDS: AMMONIUM LACTATE 227 GM BOTTLE TP SCH ×2 (08:39→17:29)
--- NOTE | 2022-02-25 09:00 | NUR ---
ICU/RN SEDATION VACATION IS NOT PROVIDED TODAY .PT IS NOT STABLE.ON LEVOPHED AND HEPARIN DRIPS.WAITING FOR ELISEO.
--- NOTE | 2022-02-25 11:05 | NUR ---
ICU/RN PT POST ELISEO.PT TOLERATED PROCEDURE WELL .DIPRIVAN DOSE INCREASED.
--- NOTE | 2022-02-25 12:17 | NUR ---
SS followed up and called ICU. Per nursing, the pt. is still sedated, intubated and notable to be interviewed at this time. SW will assess the pt. for safe discharge planning once he is extubated.
--- NOTE | 2022-02-25 18:00 | NUR ---
ICU/RN PM CARE PROVIDED.WOUND DRESSING DONE ORDERED.PT HAS DTI ON HIS SACRUM. DUE MEDS ARE GIVEN ORDERED.BS-124.CONTINUE MONITORING.
--- NOTE | 2022-02-25 19:45 | NUR ---
ICU/PATIENT SAFETY COORDINATOR RECIEVED REPORT FROM DAY RN. SEE FLOWSHEET FOR TITRATIONS TO IV'S. ALSO SEE FLOWSHEET FOR ASSESSMENT, ALONG WITH SKIN ISSUES WHICH ARE ADDRESSED ON THE SPREAD SHEET AND THE INTERVENTIONS TO EACH OF THIS PTS SKIN ISSUES. PT WAS TURNED AND REPOSITIONED FOR COMFORT AND CARE. AT THIS TIME THERE IS NO ACUTE DISTRESS SEEN AT THIS TIME. PT APPEARS TO BE COMFORTABLY RESTING. WILL CONTINUE TO MONITOR THIS PT.
--- NOTE | 2022-02-25 22:10 | NUR ---
ICU/CIGAR SORTER REPORT GIVEN TO NIGHT BRITTANI MARY JANE AQUINO FOR CONTINUITY OF CARE.
--- NOTE | 2022-02-25 23:35 | NUR ---
PALEOLOGIST NOTES: PT'S BLOOD SUGAR 124. NO COVERAGE NEEDED. NO S/S OF HYPER/HYPOGLYCEMIA. WILL CONTINUE TO MONITOR
[2022-02-26] VITALS (96 sets, daily range): BP systolic 83–129; BP diastolic 47–94
[2022-02-26] MEDS: PROPOFOL 100 ML IV PRN ×7 (01:34→21:16)
[2022-02-26 04:15] LABS: BASOPHILS # (AUTO) 0.1 K/uL (0.0-0.2); BASOPHILS % (AUTO) 1.2 % (0.0-2.0); EOSINOPHILS % (AUTO) 5.2 % (0.0-6.0); HEMATOCRIT 34 % (39-51); HEMOGLOBIN 11.4 g/dL (13.5-17.5); LYMPHOCYTES # (AUTO) 0.8 K/uL (0.8-4.8); LYMPHOCYTES % (AUTO) 12.4 % (20.0-44.0); MEAN CORPUSCULAR HGB CONC 33 g/dl (31.0-36.0); MEAN CORPUSCULAR VOLUME 90 fL (80-96); MONOCYTES # (AUTO) 1.1 K/uL (0.1-1.30); NEUTROPHILS # (AUTO) 4.4 K/uL (1.8-8.9); NEUTROPHILS % (AUTO) 65.2 % (43.0-81.0); PLATELET COUNT (AUTO) 146 K/uL (150-450); RED BLOOD CELL COUNT(AUTO) 3.82 MIL/uL (4.5-6.0); WHITE BLOOD COUNT (AUTO) 6.7 K/uL (4.3-11.0)
[2022-02-26 04:43] LABS: ALANINE AMINOTRANSFERASE 15 U/L (12-78); ALBUMIN 2.6 g/dL (3.4-5.0); ALKALINE PHOSPHATASE 102 U/L (46-116); ASPARTATE AMINOTRANSFERASE 73 U/L (15-37); BILIRUBIN,TOTAL 0.9 mg/dL (0.2-1.0); CALCIUM, SERUM 9.9 mg/dL (8.5-10.1); CARBON DIOXIDE 21 mmol/L (21-32); CHLORIDE 98 mmol/L (98-107); GLUCOSE 140 mg/dL (74-106); POTASSIUM 4.4 mmol/L (3.5-5.1); SODIUM SERUM 136 mmol/L (136-145); UREA NITROGEN, BLOOD 44 mg/dL (7-18)
[2022-02-26] MEDS: BLOOD SUGAR DIAGNOSTIC 1 EACH STRIP VI SCH ×3 (05:32→17:58)
--- NOTE | 2022-02-26 05:33 | NUR ---
FLIGHT OPERATIONS COORDINATOR NOTES: PT'S BLOOD SUGAR 119. NO COVERAGE NEEDED. NO S/S OF HYPER/HYPOGLYCEMIA. WILL CONTINUE TO MONITOR
--- NOTE | 2022-02-26 06:46 | NUR ---
POLICE PATROL LIEUTENANT CLOSING NOTES: PT IS IN BED INTUBATED, SEDATED. ON TRACH TO VENT, AC- 24, FIO2-45%, TV- 500, PEEP-0. O2 SAT 96%. IV ACCESS ON ELI MIDLINE RUNNING WITH DIPRIVAN, LEVOPHED AND HEPARIN DRIPS. NOTED RFA HD CATH FISTULA INTACT AND PATENT. NO FACIAL GRIMACING NOTED. NO ACUTE DISTRESS. LEFT CHEST PACEMAKER. ABDOMEN STILL DISTENDED. NG TUBE CLAMPED PT IS NPO EXCEPT MEDS. PT ANURIC. PTT-54.7. NO CHANGES OF DOSES. NEW ORDER FOR PTT ON 02/27/22 AT 0500. CONTINUE WITH THE SAME HEPARIN DRIP. ALL SAFETY MEASURES IN PLACE. BED IN LOWEST POSITION ANS LOCKED. SIDE RAILS UP X3, PLACE CALL LIGHT WITH IN REACH. WILL ENDORSE TO MORNING SHIFT NURSE.
--- NOTE | 2022-02-26 07:05 | NUR ---
WOUND CARE CONSULT: RECEIVED SECOND CONSULT FOR SACRAL STAGE 3 PRESSURE ULCER, PRESENT ON ADMISSION. DEFER TO SURGICAL TEAM CURRENTLY ON CASE FOR WOUND TREATMENT. PT IS CURRENTLY INTUBATED. FIRST STEP LOW AIRLOSS MATTRESS IS ON ORDER. IN AGREEMENT WITH PLAN OF CARE.
--- NOTE | 2022-02-26 07:30 | NUR ---
OPENING NOTE: REPORT RECEIVED FROM RAMANA HINTON. ORDERS AND LABS REVIEWED DURING REPORT. PT INTUBATED AND SEDATED WITH PROPOFOL, CURRENTLY INFUSING AT 45MCG/KG/MIN. HEPARIN GTT INFUSING PER MD ORDERS, NEXT PTT IN AM. LEVOPHED GTT INFUSING PER MD ORDERS, CURRENTLY INFUSING AT 0.02 MCG/KG/MIN. PT CHECKED ON HOURLY AND PRN BY NURSING STAFF.
[2022-02-26] MEDS ORDERED: CLOPIDOGREL BISULFATE 75 MG TABLET GT SCH (08:24)
[2022-02-26] MEDS ORDERED: MAG HYDROX/AL HYDROX/SIMETH 30 ML UDC GT PRN (08:25)
[2022-02-26] MEDS ORDERED: MAGNESIUM HYDROXIDE 30 ML UDC GT PRN (08:26)
[2022-02-26] MEDS ORDERED: MIDODRINE HCL (5MG) 5 MG TABLET GT SCH (08:26)
[2022-02-26] MEDS ORDERED: HYDROCODONE/APAP 5/325MG TABLET GT PRN (08:26)
[2022-02-26] MEDS ORDERED: ACETAMINOPHEN 650 MG/20.3 ML UDC GT PRN (08:30)
[2022-02-26] MEDS ORDERED: PHARMACY TO CHANGE PO MEDS TO GT/NG XX PRN (08:30)
[2022-02-26] MEDS: DOCUSATE SODIUM LIQ 100 MG/10 ML UDC GT SCH (08:35)
[2022-02-26] MEDS: ZOSYN IVPB 2.25 G in IV D5W 50ml IV SCH ×3 (08:35→23:41)
[2022-02-26] MEDS: AMIODARONE HCL 200 MG TABLET GT SCH (08:36)
[2022-02-26] MEDS: ASPIRIN 81 MG TAB.CHEW GT SCH (08:36)
[2022-02-26] MEDS: AMMONIUM LACTATE 227 GM BOTTLE TP SCH ×2 (08:37→16:51)
[2022-02-26] MEDS: TIMOLOL 0.5% SOLN OPHTH 5 ML BOTTLE EACHEYE SCH ×2 (08:37→16:51)
[2022-02-26] MEDS: HYDROGEL DRESSING 90 GM TUBE TP SCH (08:37)
[2022-02-26] MEDS: CLOTRIMAZOLE 1% 15 GM TUBE TP SCH ×2 (08:37→16:51)
[2022-02-26] MEDS: CALCIUM ACETATE 667 MG CAP/TAB GT SCH ×3 (08:39→17:57)
[2022-02-26] MEDS: NOREPINEPHRINE 8 MG in IV NS 0.9% 242 ML IV PRN (09:04)
[2022-02-26 10:28] LABS: EOSINOPHILS % (MANUAL) 3 % (0-4); LYMPHOCYTES % (MANUAL) 9 % (16-48); MONOCYTES % (MANUAL) 13 % (0-11.0); NEUTROPHILS % (MANUAL) 75 (42-76)
--- NOTE | 2022-02-26 13:17 | NUR ---
PER RADIOLOGIST US PARACENTESIS ON HOLD DUE TO PATIENT RECEIVED PLAVIX ON 02/26/22 AT 0836. INFORMED RN HANG TO HOLD FOR 5 DAYS. WILL FOLLOW UP NEXT WEEK
--- NOTE | 2022-02-26 13:30 | NUR ---
PER CLIENT SERVICE AND CONSULTING MANAGER, RADIOLOGIST DR SALINAS STATED THE PERICENTESIS CAN NOT BE DONE UNLESS PATIENT IS OFF PLAVIX X [address] CARTER IN UNIT AT THE TIME. DR CARTER STATED PATIENT CAN NOT BE OFF PLAVIX. DR CARTER ORDERED FOR HEPARIN GTT TO BE RESTARTED SINCE PERICENTESIS CAN NOT BE DONE.
[2022-02-26] MEDS: HEPARIN INFUSION/D5W 500 ML IV PRN (13:54)
--- NOTE | 2022-02-26 18:21 | NUR ---
END OF SHIFT NOTE: NO HD THIS SHIFT. PT HAD 1 LARGE BM. 1ST STEP MATTRESS OVERLAY PUT ON BED PER MD ORDERS. LEVOPHED GTT INFUSING AT 0.02 MCG/KG/MIN PER MD ORDERS. HEPARIN GTT INFUSING AT 1800 UNITS/HR PER MD ORDERS. NEXT PTT IS AT 2000 TONIGHT. PROPOFOL INFUSING AT 35 MCG/KG/MIN. SEDATION VACATION THIS AM. PT RESPONDED TO PAIN AND GOT AGITATED, SEDATION RESUMED THIS AM. PT CHECKED ON HOURLY AND PRN BY NURSING STAFF.
[2022-02-26] MEDS: IV NS 0.9% 250 ML IV PRN (22:01)
[2022-02-27] VITALS (97 sets, daily range): BP systolic 68–143; BP diastolic 23–92
[2022-02-27] MEDS: PROPOFOL 100 ML IV PRN ×6 (00:07→21:13)
[2022-02-27] MEDS: BLOOD SUGAR DIAGNOSTIC 1 EACH STRIP VI SCH ×5 (00:08→23:32)
[2022-02-27] MEDS: HEPARIN INFUSION/D5W 500 ML IV PRN ×2 (03:59→21:13)
[2022-02-27 06:04] LABS: BASOPHILS # (AUTO) 0.1 K/uL (0.0-0.2); BASOPHILS % (AUTO) 2.1 % (0.0-2.0); EOSINOPHILS % (AUTO) 5.7 % (0.0-6.0); HEMATOCRIT 36 % (39-51); HEMOGLOBIN 11.9 g/dL (13.5-17.5); LYMPHOCYTES # (AUTO) 0.9 K/uL (0.8-4.8); LYMPHOCYTES % (AUTO) 13.9 % (20.0-44.0); MEAN CORPUSCULAR HGB CONC 33 g/dl (31.0-36.0); MEAN CORPUSCULAR VOLUME 90 fL (80-96); MONOCYTES # (AUTO) 1.2 K/uL (0.1-1.30); MONOCYTES % (AUTO) 17.8 % (2.0-12.0); NEUTROPHILS # (AUTO) 4.1 K/uL (1.8-8.9); NEUTROPHILS % (AUTO) 60.5 % (43.0-81.0); PLATELET COUNT (AUTO) 144 K/uL (150-450); RED BLOOD CELL COUNT(AUTO) 3.99 MIL/uL (4.5-6.0); WHITE BLOOD COUNT (AUTO) 6.8 K/uL (4.3-11.0)
[2022-02-27 06:16] LABS: CALCIUM, SERUM 9.6 mg/dL (8.5-10.1); CARBON DIOXIDE 21 mmol/L (21-32); CHLORIDE 96 mmol/L (98-107); GLUCOSE 140 mg/dL (74-106); POTASSIUM 4.7 mmol/L (3.5-5.1); SODIUM SERUM 134 mmol/L (136-145); UREA NITROGEN, BLOOD 49 mg/dL (7-18)
[2022-02-27 06:18] LABS: CREATININE 8.6 mg/dL (0.6-1.3)
[2022-02-27 06:23] LABS: ALANINE AMINOTRANSFERASE 12 U/L (12-78); ALBUMIN 2.5 g/dL (3.4-5.0); ALKALINE PHOSPHATASE 109 U/L (46-116); ASPARTATE AMINOTRANSFERASE 54 U/L (15-37); TOTAL PROTEIN, SERUM 7.1 g/dL (6.4-8.2)
--- NOTE | 2022-02-27 07:30 | NUR ---
OPENING NOTE: REPORT RECEIVED FROM SIMONE GRAHAM. NO SIGNIFICANT EVENTS OVERNIGHT PER REPORT. ORDERS AND LABS REVIEWED DURING REPORT. HEPARIN GTT, LEVOPHED GTT AND PROPOFOL GTT CONTINUE TO INFUSED PER MD ORDERS, SEE IV FLOWSHEET FOR DOSES INFUSING. PT CHECKED ON HOURLY AND PRN BY NURSING STAFF.
[2022-02-27] MEDS: CALCIUM ACETATE 667 MG CAP/TAB GT SCH ×3 (08:22→17:11)
[2022-02-27] MEDS: DOCUSATE SODIUM LIQ 100 MG/10 ML UDC GT SCH (08:22)
[2022-02-27] MEDS: ZOSYN IVPB 2.25 G in IV D5W 50ml IV SCH ×3 (08:22→23:30)
[2022-02-27] MEDS: AMIODARONE HCL 200 MG TABLET GT SCH (08:23)
[2022-02-27] MEDS: TIMOLOL 0.5% SOLN OPHTH 5 ML BOTTLE EACHEYE SCH ×2 (08:23→17:11)
[2022-02-27] MEDS: HYDROGEL DRESSING 90 GM TUBE TP SCH (08:23)
[2022-02-27] MEDS: ASPIRIN 81 MG TAB.CHEW GT SCH (08:23)
[2022-02-27] MEDS: CLOTRIMAZOLE 1% 15 GM TUBE TP SCH ×2 (08:24→17:11)
[2022-02-27] MEDS: AMMONIUM LACTATE 227 GM BOTTLE TP SCH ×2 (08:24→17:12)
[2022-02-27] MEDS: NOREPINEPHRINE 8 MG in IV NS 0.9% 242 ML IV PRN (09:19)
[2022-02-27 09:21] LABS: LYMPHOCYTES % (MANUAL) 12 % (16-48); MONOCYTES % (MANUAL) 12 % (0-11.0); NEUTROPHILS % (MANUAL) 73 (42-76)
[2022-02-27 09:22] LABS: EOSINOPHILS % (MANUAL) 3 % (0-4)
--- NOTE | 2022-02-27 09:40 | NUR ---
HD STARTED AT THIS TIME. SEDATION VACATION WILL START AFTER HD
[2022-02-27] MEDS: ALBUMIN 25% 25 GM in PREMIX 1 EA IV PRN (09:56)
--- NOTE | 2022-02-27 10:12 | NUR ---
PER DR HUTCHISON, DR JAYLA JACKSON WILL BE DOING THE PARACENTESIS SOMETIME TODAY AND WILL NOTIFY RN WHEN TO STOP HEPARIN GTT.
--- NOTE | 2022-02-27 12:08 | NUR ---
HEPARIN STOPPED AT THIS TIME PER DR JAYLA JACKSON FOR PENDING PARACENTESIS
--- NOTE | 2022-02-27 12:40 | NUR ---
HD DONE AT THIS TIME WITHOUT DIFFICULTY 1.4L TAKEN OFF
[2022-02-27] MEDS: NEPRO 1,000 ML BOTTLE GT PRN (13:27)
--- NOTE | 2022-02-27 14:45 | NUR ---
PARACENTESIS DONE AT THIS TIME BY DR JAYLA JACKSON AND BRAND ATTENDANT WITHOUT DIFFICULTY. 2L OF BROWNISH/GREEN FLUID REMOVED. 1050ML SENT TO LAB.
--- NOTE | 2022-02-27 15:45 | NUR ---
HEPARIN RESTARTED AT THIS TIME PER DR JAYLA JACKSON AT SAME RATE PRIOR TO STOPPING, 1800 UNITS/HR. PT HAD LARGE LIQUID BM, RECTAL TUBE INSERTED, DRESSING CHANGE DONE ON SACRAL WOUND.
--- NOTE | 2022-02-27 15:46 | NUR ---
PT ON PLAVIX, LAST GIVEN ON02/26/22 AT 08:36. PER DR. SALINAS PARACENTESIS WAS ON HOLD TILL Tue03/03/22. ORDERING DR. RAUL BETTS AWARE AND REQUESTED TO PROCEED WITH PROCEDURE TODAY. RN AND MD INFORMED ABOUT THE RISK.
--- NOTE | 2022-02-27 16:00 | NUR ---
NO SEDATION VACATION DONE TODAY DUE TO BACK TO BACK PROCEDURES, HEMODIALYSIS, PARACENTESIS AND RECTAL TUBE PLACEMENT. MD'S AWARE.
[2022-02-27] MEDS: IV NS 0.9% 250 ML IV PRN (21:13)
[2022-02-28] VITALS (96 sets, daily range): BP systolic 89–138; BP diastolic 47–96
[2022-02-28] MEDS: PROPOFOL 100 ML IV PRN ×4 (01:00→19:44)
[2022-02-28 05:28] LABS: BASOPHILS # (AUTO) 0.1 K/uL (0.0-0.2); BASOPHILS % (AUTO) 1.9 % (0.0-2.0); EOSINOPHILS % (AUTO) 6.3 % (0.0-6.0); HEMATOCRIT 35 % (39-51); HEMOGLOBIN 11.7 g/dL (13.5-17.5); LYMPHOCYTES # (AUTO) 0.8 K/uL (0.8-4.8); LYMPHOCYTES % (AUTO) 14.1 % (20.0-44.0); MEAN CORPUSCULAR HGB CONC 33 g/dl (31.0-36.0); MEAN CORPUSCULAR VOLUME 90 fL (80-96); MONOCYTES # (AUTO) 0.9 K/uL (0.1-1.30); MONOCYTES % (AUTO) 15.9 % (2.0-12.0); NEUTROPHILS # (AUTO) 3.4 K/uL (1.8-8.9); NEUTROPHILS % (AUTO) 61.8 % (43.0-81.0); PLATELET COUNT (AUTO) 114 K/uL (150-450); RED BLOOD CELL COUNT(AUTO) 3.91 MIL/uL (4.5-6.0); WHITE BLOOD COUNT (AUTO) 5.5 K/uL (4.3-11.0)
[2022-02-28] MEDS: BLOOD SUGAR DIAGNOSTIC 1 EACH STRIP VI SCH ×3 (05:39→18:32)
[2022-02-28 05:42] LABS: ALANINE AMINOTRANSFERASE 14 U/L (12-78); ALBUMIN 2.4 g/dL (3.4-5.0); ALKALINE PHOSPHATASE 105 U/L (46-116); ASPARTATE AMINOTRANSFERASE 33 U/L (15-37); BILIRUBIN,TOTAL 0.9 mg/dL (0.2-1.0); CALCIUM, SERUM 9.4 mg/dL (8.5-10.1); CARBON DIOXIDE 24 mmol/L (21-32); CHLORIDE 95 mmol/L (98-107); CREATININE 7.4 mg/dL (0.6-1.3); GLUCOSE 135 mg/dL (74-106); POTASSIUM 4.2 mmol/L (3.5-5.1); SODIUM SERUM 133 mmol/L (136-145); TOTAL PROTEIN, SERUM 6.7 g/dL (6.4-8.2); UREA NITROGEN, BLOOD 38 mg/dL (7-18)
[2022-02-28 09:33] LABS: EOSINOPHILS % (MANUAL) 9 % (0-4); LYMPHOCYTES % (MANUAL) 11 % (16-48); MONOCYTES % (MANUAL) 13 % (0-11.0); NEUTROPHILS % (MANUAL) 67 (42-76)
[2022-02-28] MEDS: HYDROCORTISONE SOD SUCCINATE 100 MG/2 ML VIAL IV SCH ×3 (09:39→20:36)
[2022-02-28] MEDS: ZOSYN IVPB 2.25 G in IV D5W 50ml IV SCH ×2 (09:39→16:30)
[2022-02-28] MEDS: CALCIUM ACETATE 667 MG CAP/TAB GT SCH ×2 (09:40→16:30)
[2022-02-28] MEDS: AMIODARONE HCL 200 MG TABLET GT SCH (09:40)
[2022-02-28] MEDS: DOCUSATE SODIUM LIQ 100 MG/10 ML UDC GT SCH (09:40)
[2022-02-28] MEDS: ASPIRIN 81 MG TAB.CHEW GT SCH (09:40)
[2022-02-28] MEDS: CLOTRIMAZOLE 1% 15 GM TUBE TP SCH ×2 (09:41→16:48)
[2022-02-28] MEDS: AMMONIUM LACTATE 227 GM BOTTLE TP SCH ×2 (09:41→16:48)
[2022-02-28] MEDS: TIMOLOL 0.5% SOLN OPHTH 5 ML BOTTLE EACHEYE SCH ×2 (09:41→16:48)
[2022-02-28] MEDS: HYDROGEL DRESSING 90 GM TUBE TP SCH (09:41)
[2022-02-28] MEDS: HEPARIN INFUSION/D5W 500 ML IV PRN (11:35)
[2022-02-28] MEDS: INSULIN REGULAR, HUMAN 100 UNIT/ML 3 ML VIAL SQ PRN ×2 (12:49→18:34)
[2022-02-28] MEDS ORDERED: ALBUMIN 25% 50 GM in PREMIX 1 EA IV PRN (13:30)
[2022-02-28] MEDS: NEPRO 1,000 ML BOTTLE GT PRN (16:30)
--- NOTE | 2022-02-28 19:25 | NUR ---
END OF SHIFT NOTE: PT HAD A PARACENTESIS TODAY, 2ND ONE IN 2 DAYS, 2L OUT. NO HD TODAY. LEVOPHED WAS TITRATED OFF AT 1140 TODAY. SEDATION VACATION DONE TODAY PER PROTOCOL. PT WOKE UP, MADE EYE CONTACT, MOVED HANDS WITHOUT DIFFICULTY, NODDED AND SHOOK HEAD TO COMMANDS. PT'S MOTHER AND BROTHER VISITED WHEN PT WAS AWAKE. SEDATION TITRATED BACK ON TILL PATIENT WAS COMFORTABLE AND LIGHTLY SEDATED AT 15 MCG/KG/MIN. FLEXISEAL IN PLACE, NO LEAKS, 500 ML LIQUID BM THIS SHIFT. PT CHECKED ON HOURLY AND PRN BY NURSING STAFF.
[2022-02-28] MEDS: IV NS 0.9% 250 ML IV PRN (22:49)
[2022-03-01] VITALS (61 sets, daily range): BP systolic 89–130; BP diastolic 46–91
[2022-03-01] MEDS: ZOSYN IVPB 2.25 G in IV D5W 50ml IV SCH ×4 (00:02→23:51)
[2022-03-01] MEDS: BLOOD SUGAR DIAGNOSTIC 1 EACH STRIP VI SCH ×5 (00:02→23:40)
[2022-03-01] MEDS: INSULIN REGULAR, HUMAN 100 UNIT/ML 3 ML VIAL SQ PRN ×5 (00:07→23:43)
[2022-03-01] MEDS: CALCIUM ACETATE 667 MG CAP/TAB GT SCH ×3 (00:44→16:37)
[2022-03-01] MEDS: HEPARIN INFUSION/D5W 500 ML IV PRN ×2 (03:22→18:39)
[2022-03-01] MEDS: PROPOFOL 100 ML IV PRN ×2 (03:38→07:45)
[2022-03-01 04:33] LABS: BASOPHILS % (AUTO) 0.4 % (0.0-2.0); EOSINOPHILS % (AUTO) 0.2 % (0.0-6.0); HEMATOCRIT 34 % (39-51); HEMOGLOBIN 11.4 g/dL (13.5-17.5); LYMPHOCYTES # (AUTO) 0.5 K/uL (0.8-4.8); LYMPHOCYTES % (AUTO) 9.6 % (20.0-44.0); MEAN CORPUSCULAR HGB CONC 33 g/dl (31.0-36.0); MEAN CORPUSCULAR VOLUME 90 fL (80-96); MONOCYTES # (AUTO) 0.5 K/uL (0.1-1.30); MONOCYTES % (AUTO) 8.5 % (2.0-12.0); NEUTROPHILS # (AUTO) 4.6 K/uL (1.8-8.9); NEUTROPHILS % (AUTO) 81.3 % (43.0-81.0); PLATELET COUNT (AUTO) 103 K/uL (150-450); RED BLOOD CELL COUNT(AUTO) 3.81 MIL/uL (4.5-6.0); WHITE BLOOD COUNT (AUTO) 5.7 K/uL (4.3-11.0)
[2022-03-01 04:51] LABS: CALCIUM, SERUM 9.9 mg/dL (8.5-10.1); CARBON DIOXIDE 23 mmol/L (21-32); CHLORIDE 91 mmol/L (98-107); GLUCOSE 181 mg/dL (74-106); POTASSIUM 5.2 mmol/L (3.5-5.1); SODIUM SERUM 130 mmol/L (136-145); UREA NITROGEN, BLOOD 50 mg/dL (7-18)
[2022-03-01 04:54] LABS: ALANINE AMINOTRANSFERASE 11 U/L (12-78); ALBUMIN 2.3 g/dL (3.4-5.0); ALKALINE PHOSPHATASE 106 U/L (46-116); ASPARTATE AMINOTRANSFERASE 26 U/L (15-37); BILIRUBIN,TOTAL 0.8 mg/dL (0.2-1.0); CREATININE 8.8 mg/dL (0.6-1.3); TOTAL PROTEIN, SERUM 6.8 g/dL (6.4-8.2)
[2022-03-01] MEDS: HYDROCORTISONE SOD SUCCINATE 100 MG/2 ML VIAL IV SCH ×3 (05:36→20:55)
--- NOTE | 2022-03-01 06:45 | NUR ---
ICU/RN: PTT RESULTS 83.7 PER HEPARIN DRIP [facility] PROTOCOL HOLD DRIP FOR 30MIN. THEN DECREASE RATE BY 200UNITS/HR. DRIP WILL RESUME AT 0715 AT NEW RATE OF 1600UNITS/HR. NEXT PTT AT 1330
--- NOTE | 2022-03-01 07:05 | NUR ---
RN NOTES RECEIVED PT ON BED, INTUBATED, SEDATED ON DIPRIVAN AT 25 MCG/KG/MIN, TOLERATING VENT SETTING WELL, O2 SAT WNL, ON A.FIB , ON LEVO AT .3 MCG.KG/MIN FOR BP SUPPORT, HEPARIN ON HOLD AT THIS TIME , LAST PTT= 83.7, CONTINUE TO MONITOR , IV SITE CLEAN DRY AND INTACT, TF AT 15 CC/HR RUNNING , SR UP x3, CALL LIGHT WITHIN EASY REACH, BED LOCKED AND IN LOWEST POSITION, CONTINUE TO MONITOR .
[2022-03-01] MEDS: DOCUSATE SODIUM LIQ 100 MG/10 ML UDC GT SCH (08:10)
[2022-03-01] MEDS: AMIODARONE HCL 200 MG TABLET GT SCH (08:10)
[2022-03-01] MEDS: ASPIRIN 81 MG TAB.CHEW GT SCH (08:10)
[2022-03-01] MEDS: TIMOLOL 0.5% SOLN OPHTH 5 ML BOTTLE EACHEYE SCH ×2 (08:11→16:16)
[2022-03-01] MEDS: HYDROGEL DRESSING 90 GM TUBE TP SCH (08:12)
[2022-03-01] MEDS: HYDROGEL DRESSING 90 GM TUBE TP PRN (08:12)
[2022-03-01] MEDS: AMMONIUM LACTATE 227 GM BOTTLE TP SCH ×2 (08:13→16:19)
[2022-03-01] MEDS: CLOTRIMAZOLE 1% 15 GM TUBE TP SCH ×2 (08:13→16:19)
[2022-03-01] MEDS ORDERED: CLOPIDOGREL BISULFATE 75 MG TABLET PO SCH (09:00)
--- NOTE | 2022-03-01 10:00 | NUR ---
RN NOTES PT ON SIMV MODE, TOLERATING WELL , ET AND ORAL SUCTIONING DONE NEEDED, O2 SAT WNL, CONTINUE TO MONITOR
[2022-03-01] MEDS ORDERED: NEPRO 1,000 ML BOTTLE GT PRN (10:30)
[2022-03-01 11:56] LABS: ABG BASE EXCESS -6.3 mmol/L; ABG OXYGEN SATURATION 92.9 % (92.0-98.5); ABG PCO2 34.8 mmHg (35.0-45.0); ABG PH 7.346 (7.350-7.450); ABG PO2 77.6 mmHg (75.0-100.0); AaDO2 167.6 mmHg; COHb 0.6 % (0.5-1.5); MetHb 0.3 % (0.0-1.5); O2Hb 92.1 % (94.0-97.0); SITE, ABG Left Radial
[2022-03-01] MEDS ORDERED: DC PROPOFOL WHEN EXTUBATED XX PRN (12:00)
--- NOTE | 2022-03-01 14:15 | NUR ---
RN NOTES PT EXTUBATED PER DR CARTER ORDER , VSS STABLE AT THIS TIME, ORAL SUCTIONING DONE , REPORT GIVEN TO FAROOQ HINTON FOR CONTINUITY OF CARE.
[2022-03-01 15:45] LABS: ABG BASE EXCESS -6.3 mmol/L; ABG PCO2 38.9 mmHg (35.0-45.0); ABG PH 7.314 (7.350-7.450); ABG PO2 76.5 mmHg (75.0-100.0); AaDO2 200.1 mmHg; MetHb 0.3 % (0.0-1.5); O2Hb 90.8 % (94.0-97.0); SITE, ABG Left Radial; VENT MODE, BG nasal cannula
--- NOTE | 2022-03-01 19:10 | NUR ---
RN OPENING NOTES RECEIVED PATIENT ON BED, S/P EXTUBATED, SLEEPING EASY TO AROUSE. ON NASAL CANULA @ 6LPM SATING AT 94%. RESPIRATORY EVEN ANG UNLABORED, NO SOB NOTED. AFEBRILE. NO S/S OF DISTRESS NOTED. NOTED WITH ELI MIDLINE #18G, INTACT, PATENT. FLUSHED WITH NS, NO INFILTRATION NOTED AT SITE. RFA AV FISTULA FOR HD, NO ACTIVE BLEEDING NOTED AT SITE. RIGHT NARE NG TUBE INTACT, PATENT, INPLACED, VERIFIED PLACEMENT BY AUSCULTATION, NO RESIDUAL NOTED UPON ASPIRATION. FLUSHED WITH WATER. RUNNING WITH NEPHRO @ 30 ML/HR. WITH FLEXI-SEAL, INTACT, PATENT DRAINING VIA GRAVITY. PATIENT IS ANURIC. ALL SAFETY PRECAUTION PROVIDED. BED IN LOWEST POSITION, LOCKED. CALL LIGHT WITH IN REACH.
[2022-03-02] VITALS (69 sets, daily range): BP systolic 81–148; BP diastolic 42–101
[2022-03-02] MEDS: CALCIUM ACETATE 667 MG CAP/TAB GT SCH ×3 (00:44→17:11)
--- NOTE | 2022-03-02 03:40 | NUR ---
RN NOTES PATIENT NOTED WITH BP 75/46, AUTOMOTIVE PARTS MANAGER CLARENCE NOTIFIED WITH NEW ORDER RESTART LEVOPHED, NOTED AND CARRIED OUT.
[2022-03-02] MEDS: NOREPINEPHRINE 8 MG in IV NS 0.9% 242 ML IV PRN ×2 (03:54→15:06)
--- NOTE | 2022-03-02 04:45 | NUR ---
RN NOTES PATIENT NOTED WITH LOW 02 SAT 80% ON 6LPM, CHARGE NURSE AT BEDSIDE. RT NOTIFIED, DEEP SUCTION DONE, STILL O2 SAT NOT IMPROVING. PATIENT NOW COMPLAINING THE HE HAS HARD TIME BREATHING. PATIENT BECOME SOMNOLENT, O2 SAT NOT IMPROVING, WITH SHALLOW BREATHING. NOTIFIED DEBBY KIM REGARDING PATIENT STATUS WITH ORDER TO REQUEST ER FOR INTUBATION.
[2022-03-02 05:08] LABS: ALANINE AMINOTRANSFERASE 15 U/L (12-78); ALBUMIN 2.2 g/dL (3.4-5.0); ALKALINE PHOSPHATASE 83 U/L (46-116); ASPARTATE AMINOTRANSFERASE 26 U/L (15-37); BILIRUBIN,TOTAL 0.7 mg/dL (0.2-1.0); CALCIUM, SERUM 9.5 mg/dL (8.5-10.1); CARBON DIOXIDE 22 mmol/L (21-32); CHLORIDE 92 mmol/L (98-107); GLUCOSE 183 mg/dL (74-106); POTASSIUM 5.3 mmol/L (3.5-5.1); SODIUM SERUM 132 mmol/L (136-145); TOTAL PROTEIN, SERUM 6.1 g/dL (6.4-8.2); UREA NITROGEN, BLOOD 63 mg/dL (7-18)
[2022-03-02 05:08] LABS: ABG BASE EXCESS -7.6 mmol/L; ABG PCO2 52.8 mmHg (35.0-45.0); ABG PH 7.205 (7.350-7.450); ABG PO2 45.2 mmHg (75.0-100.0); COHb 0.6 % (0.5-1.5); O2Hb 68.5 % (94.0-97.0); SITE, ABG Right Radial; VENT MODE, BG 4L NASAL CANNULA
--- NOTE | 2022-03-02 05:13 | NUR ---
RN NOTES PATIENT PRE-MEDICATED WITH PROPOFOL 100MG IV PUSH, PATIENT IS INTUBATED BY DR. VILLASENOR. RT AT BEDSIDE, WITH VENT SETTING TV-500, FIO2-100%, PEEP-OFF
[2022-03-02] MEDS: HYDROCORTISONE SOD SUCCINATE 100 MG/2 ML VIAL IV SCH ×3 (05:37→21:14)
[2022-03-02] MEDS: PROPOFOL 100 ML IV PRN ×4 (05:39→20:25)
[2022-03-02 06:01] LABS: BASOPHILS % (AUTO) 0.2 % (0.0-2.0); EOSINOPHILS % (AUTO) 0.1 % (0.0-6.0); HEMATOCRIT 27 % (39-51); HEMOGLOBIN 8.9 g/dL (13.5-17.5); LYMPHOCYTES # (AUTO) 0.8 K/uL (0.8-4.8); LYMPHOCYTES % (AUTO) 6.2 % (20.0-44.0); MEAN CORPUSCULAR HGB CONC 34 g/dl (31.0-36.0); MEAN CORPUSCULAR VOLUME 90 fL (80-96); MONOCYTES # (AUTO) 1.5 K/uL (0.1-1.30); MONOCYTES % (AUTO) 11.9 % (2.0-12.0); NEUTROPHILS # (AUTO) 10.5 K/uL (1.8-8.9); NEUTROPHILS % (AUTO) 81.6 % (43.0-81.0); PLATELET COUNT (AUTO) 156 K/uL (150-450); RED BLOOD CELL COUNT(AUTO) 2.94 MIL/uL (4.5-6.0); WHITE BLOOD COUNT (AUTO) 12.9 K/uL (4.3-11.0)
[2022-03-02] MEDS: BLOOD SUGAR DIAGNOSTIC 1 EACH STRIP VI SCH ×3 (06:13→17:16)
[2022-03-02] MEDS: INSULIN REGULAR, HUMAN 100 UNIT/ML 3 ML VIAL SQ PRN ×3 (06:15→17:37)
[2022-03-02 06:25] LABS: ABG BASE EXCESS -6.6 mmol/L; ABG PCO2 38.7 mmHg (35.0-45.0); ABG PH 7.311 (7.350-7.450); ABG PO2 203.4 mmHg (75.0-100.0); COHb 0.3 % (0.5-1.5); MetHb 0.1 % (0.0-1.5); O2Hb 98.4 % (94.0-97.0); PEEP,BG 0 cm H2O; SITE, ABG Left Brachial; VENT MODE, BG AC 24 500 100% +0; VT, ABG 500 mL
--- NOTE | 2022-03-02 07:26 | NUR ---
RN NOTES PATIENT SEDATED AND INTUBATED, VENT SETTING TOLERATED WELL. RESPIRATORY EVEN ANG UNLABORED, NO SOB NOTED. AFEBRILE. NO S/S OF DISTRESS NOTED. RFA AV FISTULA FOR HD, NO ACTIVE BLEEDING NOTED AT SITE. RIGHT NARE NG TUBE INTACT, PATENT, INPLACED, VERIFIED PLACEMENT BY AUSCULTATION, NO RESIDUAL NOTED UPON ASPIRATION. FLUSHED WITH WATER. RUNNING WITH NEPHRO @ 30 ML/HR. WITH FLEXI-SEAL, INTACT, PATENT DRAINING VIA GRAVITY. PATIENT IS ANURIC. ALL SAFETY PRECAUTION PROVIDED. BED IN LOWEST POSITION, LOCKED. CALL LIGHT WITH IN REACH.
--- NOTE | 2022-03-02 07:45 | NUR ---
ICU/RN PT IS INTUBATED ON THE VENT AC MODE,FIO2-100%.PT IS REINTUBATED DIGITAL MARKETING PROJECT MANAGER.ON DIPRIVAN DRIP.LEVOPHED AND HEPARIN DRIPS.ANURIC ON HD RIGHT ARM FISTULA.LEFT UPPER ARM ML. ANURIC.RECTAL TUBE DRAINING WITH GREEN LIQUID STOOL.PT HAS ASCITES.RIGHT NG TUBE INFUSING WITH NEPRO AT 30 ML/HR NO RESIDUAL. AFEBRILE.
[2022-03-02] MEDS: ZOSYN IVPB 2.25 G in IV D5W 50ml IV SCH ×2 (08:52→15:06)
[2022-03-02] MEDS: AMIODARONE HCL 200 MG TABLET GT SCH (08:53)
[2022-03-02] MEDS: ASPIRIN 81 MG TAB.CHEW GT SCH (08:53)
[2022-03-02] MEDS: TIMOLOL 0.5% SOLN OPHTH 5 ML BOTTLE EACHEYE SCH ×2 (08:54→17:13)
[2022-03-02] MEDS: DOCUSATE SODIUM LIQ 100 MG/10 ML UDC GT SCH (08:54)
[2022-03-02] MEDS: CLOTRIMAZOLE 1% 15 GM TUBE TP SCH ×2 (08:55→17:16)
[2022-03-02] MEDS: AMMONIUM LACTATE 227 GM BOTTLE TP SCH ×2 (08:55→17:16)
[2022-03-02] MEDS: HYDROGEL DRESSING 90 GM TUBE TP SCH (08:55)
--- NOTE | 2022-03-02 09:00 | NUR ---
ICU/RN DUE MEDS ARE GIVEN ORDERED.HD STARTED.HD NURSE AT BEDSIDE.
[2022-03-02] MEDS: ALBUMIN 25% 25 GM in PREMIX 1 EA IV PRN (09:46)
[2022-03-02] MEDS: HEPARIN INFUSION/D5W 500 ML IV PRN (09:46)
[2022-03-02] MEDS ORDERED: PROPOFOL 200 MG/20 ML VIAL IV ONE (10:26)
[2022-03-02] MEDS: VANCOMYCIN POST DIALYSIS 500MG IV PRN ×2 (13:35)
--- NOTE | 2022-03-02 17:35 | NUR ---
ICU/RN PM CARE PROVIDED.DUE MEDS ARE GIVEN ORDERED.WOUND DRESSING DONE.SUCTION PROVIDED.REPOSITION FOR COMFORT.
[2022-03-03] VITALS (42 sets, daily range): BP systolic 64–113; BP diastolic 38–73
[2022-03-03] MEDS: BLOOD SUGAR DIAGNOSTIC 1 EACH STRIP VI SCH ×2 (00:29→05:29)
[2022-03-03] MEDS: INSULIN REGULAR, HUMAN 100 UNIT/ML 3 ML VIAL SQ PRN ×2 (00:30→05:30)
[2022-03-03] MEDS: ZOSYN IVPB 2.25 G in IV D5W 50ml IV SCH ×2 (00:33→09:00)
[2022-03-03] MEDS: HEPARIN INFUSION/D5W 500 ML IV PRN (00:34)
[2022-03-03] MEDS: PROPOFOL 100 ML IV PRN ×3 (00:35→08:57)
[2022-03-03] MEDS: CALCIUM ACETATE 667 MG CAP/TAB GT SCH ×2 (00:43→09:06)
[2022-03-03] MEDS: IV NS 0.9% 250 ML IV PRN (00:44)
[2022-03-03] MEDS: NOREPINEPHRINE 8 MG in IV NS 0.9% 242 ML IV PRN ×2 (03:05→09:45)
[2022-03-03] MEDS: HYDROCORTISONE SOD SUCCINATE 100 MG/2 ML VIAL IV SCH (04:56)
[2022-03-03 06:19] LABS: ALANINE AMINOTRANSFERASE 18 U/L (12-78); ALKALINE PHOSPHATASE 78 U/L (46-116); ASPARTATE AMINOTRANSFERASE 22 U/L (15-37); BILIRUBIN,TOTAL 0.7 mg/dL (0.2-1.0); CALCIUM, SERUM 9.4 mg/dL (8.5-10.1); CARBON DIOXIDE 22 mmol/L (21-32); CHLORIDE 90 mmol/L (98-107); GLUCOSE 241 mg/dL (74-106); POTASSIUM 5.5 mmol/L (3.5-5.1); SODIUM SERUM 132 mmol/L (136-145); TOTAL PROTEIN, SERUM 5.5 g/dL (6.4-8.2); UREA NITROGEN, BLOOD 59 mg/dL (7-18)
[2022-03-03 06:23] LABS: BASOPHILS # (AUTO) 0.1 K/uL (0.0-0.2); BASOPHILS % (AUTO) 0.3 % (0.0-2.0); EOSINOPHILS % (AUTO) 0.4 % (0.0-6.0); HEMATOCRIT 21 % (39-51); LYMPHOCYTES # (AUTO) 3.6 K/uL (0.8-4.8); LYMPHOCYTES % (AUTO) 9.6 % (20.0-44.0); MEAN CORPUSCULAR HGB CONC 33 g/dl (31.0-36.0); MEAN CORPUSCULAR VOLUME 92 fL (80-96); MONOCYTES # (AUTO) 7.9 K/uL (0.1-1.30); MONOCYTES % (AUTO) 20.8 % (2.0-12.0); NEUTROPHILS # (AUTO) 26.2 K/uL (1.8-8.9); NEUTROPHILS % (AUTO) 68.9 % (43.0-81.0); PLATELET COUNT (AUTO) 268 K/uL (150-450); RED BLOOD CELL COUNT(AUTO) 2.24 MIL/uL (4.5-6.0)
[2022-03-03 06:24] LABS: CREATININE 8.8 mg/dL (0.6-1.3)
--- NOTE | 2022-03-03 06:25 | NUR ---
ICU/ASSOCIATE DATA SCIENTIST CRITICAL LAB OF LOW H/H WAS 6.1/18 FROM THE LINE. TOLD LAB TO REDRAW THIS AGAIN BUT PERIPHERAL DUE TO THE FACT YESTERDAY H/H WAS STABLE AT 8.9/. WAIT FOR REDRAW.
--- NOTE | 2022-03-03 06:33 | NUR ---
ICU/STANDPIPE TENDER Hold Heparin drip for ptt 112.5 for 1 hour per protocal. Then restart heparin IN 1 hour at 0730 and next ptt@1300
--- NOTE | 2022-03-03 06:40 | NUR ---
ICU/SECONDARY SOCIAL STUDIES TEACHER MORNING LAB OF LACTIC ACID WAS 5.2, THE LEAD SOFTWARE DEVELOPMENT ENGINEER WAS NOTIFED HELEN WHO SAID THAT THERE IS NO NEW ORDERS. Addendum: 03/03/22 at 1939 by SIMONE AMBROSIO SECONDARY SOCIAL STUDIES TEACHER LEAD SOFTWARE DEVELOPMENT ENGINEER GURDEEP SAID TO HAVE PRIMARY MD DEAL WITH THE LACTIC ACID.
[2022-03-03 06:52] LABS: HEMOGLOBIN 6.7 g/dL (13.5-17.5)
--- NOTE | 2022-03-03 06:57 | NUR ---
ICU/TELEPHONE AD TAKER MORNING LABS OF CRITICAL WBC-38, H/H-6.7/21, PTT-112.5, LACTIC ACID-5.2. CALLED THE SUPPLY CATALOGUER GURDEEP . WAITING FOR CALL BACK.
--- NOTE | 2022-03-03 07:20 | NUR ---
RECEIVED PT. ON BED, NO SSx OF DISTRESS NOTED AT THIS TIME. ON DIPRIVAN DRIP/ LEVO DRIP/HEPARIN DRIP INFUSING PER MD ORDERS. WILL CONTINUE TO MONITOR PT.
--- NOTE | 2022-03-03 08:13 | NUR ---
DR. LEY AT THE UNIT MADE AWARE OF THE RECENT LAB RESULT, ALSO AWARE OF THE WBC=38 AND HGB LEVEL .
[2022-03-03 08:15] LABS: BILIRUBIN,DIRECT 0.4 mg/dL (0.0-0.2)
--- NOTE | 2022-03-03 08:33 | NUR ---
DR. LEY AWARE OF THE LACTIC ACID LEVEL=7.0
--- NOTE | 2022-03-03 09:55 | NUR ---
HEMODIALYSIS SESSION ONGOING; BP RECHECKING UNABLE TO GET DATA, REPEATED 3X UNABLE TO READ BP . CODE BLUE ACTIVATED BY
--- NOTE | 2022-03-03 10:00 | NUR ---
[facility] CLERK/MD ARRIVED. AND STARTED CPR. PLEASE REFER TO CODE EMERGENCY FORM/SHEET FOR DETAILS
--- NOTE | 2022-03-03 10:25 | NUR ---
AT 10:10AM PER CHARGE NURSE, THE PT.'S MOTHER-SIMONE WEBER WAS NOTIFIED OF THE CODE BY ROSAS-CLINICAL DIRECTOR. 10:25AM= DR. LEY WAS NOTIFIED BY CHARGE NURSE OF THE CODE EVENT AND PER CHARGE NURSE.
[2022-03-03] MEDS ORDERED: AMIODARONE 150 MG/3 ML VIAL IV ONE (10:28)
[2022-03-03] MEDS ORDERED: EPINEPHRINE (1:1000) 1 MG/ML AMPUL SUBCUT ONE (10:28)
--- NOTE | 2022-03-03 10:48 | NUR ---
[facility] WAS NOTIFIED, AND TERESA La AWARE OF THE TIME OF . ORGAN DONATION REFERENCE# [id number]. TERESA La PHONE NUMBER WAS GIVEN BY HERSELF [phone] AND SHE OKAYED FOR RECORD AND REFERENCE TO NOTE HER NUMBER.
--- NOTE | 2022-03-03 12:10 | NUR ---
SIMONE WEBER-MOTHER ,AT THE UNIT TO SEE PT. AND ALL PT. BELONGINGS TAKEN BY HER.
--- NOTE | 2022-03-03 13:10 | NUR ---
PT. BODY/REMAINS WAS PICKED UP AT THIS TIME PER [employer]OT[employer]. CHARGE NURSE AWARE.
[2022-03-03 16:29] LABS: BAND % (MANUAL) 1 % (0.0-5.0); LYMPHOCYTES % (MANUAL) 10 % (16-48); METAMYELOCYTES % 2 % (0-0); MONOCYTES % (MANUAL) 20 % (0-11.0); NEUTROPHILS % (MANUAL) 67 (42-76)
== END 2022-03-03 17:00 | DRG 870 ==
LOC: ER 19:39 → ICU 21:55
PROVIDERS: ADMIT Nurse Practitioner Acute Care; ATTEND Family Medicine
PROC: 5A1955Z Respiratory Ventilation, Greater than 96 Consecutive Hours (ICD-10-PCS; principal; 2022-02-22)
PROC: 0BH18EZ Insertion of Endotracheal Airway into Trachea, Via Natural or Artificial Opening Endoscopic (ICD-10-PCS; 2022-02-23)
PROC: 5A1D70Z Performance of Urinary Filtration, Intermittent, Less than 6 Hours Per Day (ICD-10-PCS; 2022-02-23)
PROC: 05HA33Z Insertion of Infusion Device into Left Brachial Vein, Percutaneous Approach (ICD-10-PCS; 2022-02-23)
PROC: B246ZZ4 Ultrasonography of Right and Left Heart, Transesophageal (ICD-10-PCS; 2022-02-25)
PROC: 0W9G3ZZ Drainage of Peritoneal Cavity, Percutaneous Approach (ICD-10-PCS; 2022-02-27)
PROC: 0BH18EZ Insertion of Endotracheal Airway into Trachea, Via Natural or Artificial Opening Endoscopic (ICD-10-PCS; 2022-03-02)
PROC: 5A1945Z Respiratory Ventilation, 24-96 Consecutive Hours (ICD-10-PCS; 2022-03-02)
PROC: 5A2204Z Restoration of Cardiac Rhythm, Single (ICD-10-PCS; 2022-03-03)
DX: A41.9 Sepsis, unspecified organism (principal); L89.153 Pressure ulcer of sacral region, stage 3; N18.6 End stage renal disease; J96.21 Acute and chronic respiratory failure with hypoxia; J15.9 Unspecified bacterial pneumonia; R65.21 Severe sepsis with septic shock; I50.43 Acute on chronic combined systolic (congestive) and diastolic (congestive) heart failure; J96.22 Acute and chronic respiratory failure with hypercapnia; I21.A1 Myocardial infarction type 2; I13.2 Hypertensive heart and chronic kidney disease with heart failure and with stage 5 chronic kidney disease, or end stage renal disease; Z68.41 Body mass index [BMI] 40.0-44.9, adult; E66.2 Morbid (severe) obesity with alveolar hypoventilation; E46 Unspecified protein-calorie malnutrition; R18.8 Other ascites; E87.2 Acidosis; J98.11 Atelectasis; I42.9 Cardiomyopathy, unspecified; B35.1 Tinea unguium; B35.3 Tinea pedis; Z20.822 Contact with and (suspected) exposure to COVID-19; Z95.0 Presence of cardiac pacemaker; Z99.2 Dependence on renal dialysis; E11.22 Type 2 diabetes mellitus with diabetic chronic kidney disease; Z79.899 Other long term (current) drug therapy; Z79.02 Long term (current) use of antithrombotics/antiplatelets; E78.5 Hyperlipidemia, unspecified; D63.8 Anemia in other chronic diseases classified elsewhere; I87.8 Other specified disorders of veins; R57.0 Cardiogenic shock; E83.39 Other disorders of phosphorus metabolism; Z87.891 Personal history of nicotine dependence; E88.09 Other disorders of plasma-protein metabolism, not elsewhere classified; I46.9 Cardiac arrest, cause unspecified; I48.0 Paroxysmal atrial fibrillation; I35.0 Nonrheumatic aortic (valve) stenosis; E87.5 Hyperkalemia
CPT/HCPCS: 31720; 36415; 36600; 71045-TC; 74018; 76705-TC; 76942-TC; 80048-TC; 80053-TC; 80076-TC; 80202-TC; 82248-TC; 82533; 82803-TC; 82962-TC; 83605-TC; 83735-TC; 83880; 84100-TC; 84478-TC; 84484-TC; 85025-TC; 85610-TC; 85730-TC; 86706; 86709-TC; 86850-TC; 87040-TC; 87070-TC; 87081-TC; 87340; 90935-TC; 92950-TC; 93307-TC; 93312-TC; 93970-TC; 94002-TC; 94003-TC; 94760-TC; 94762-TC; 94799-TC; A4216; A6248; A6253; A6403; C9803; G0378; J0171; J0282; J0456; J0696; J1644; J1720; J1815; J2270; J2370; J2543; J2704; J3370; J3490; J7030; J7050; J7060; P9047